=== PATIENT | female | born 1955 | race Caucasian/White ===

== ENCOUNTER → 2019-08-15 | Outpatient (CLI) | payer OTHER ==
[~2019-08-15] MED LIST: COZAAR 25 MG TA25 M2 PO; HYDROCODON-ACE1 EAC7 PO; PRAVASTATIN SOD40 MG PO; VIBRAMYCIN 100100 MG PO
== END ==
LOC: SJCVCIMAG 10:21
DX: I70.202 Unspecified atherosclerosis of native arteries of extremities, left leg (principal)

== ENCOUNTER → 2019-08-19 | Outpatient (CLI) | payer OTHER | LOC: SJCVC 15:46 | DX: I73.9 Peripheral vascular disease, unspecified (principal); I10 Essential (primary) hypertension; E78.00 Pure hypercholesterolemia, unspecified; Z72.0 Tobacco use; Z79.899 Other long term (current) drug therapy ==

== ENCOUNTER 2019-08-21 10:52 | Observation (INO) | payer OTHER ==
[~2019-08-21] VITALS: Ht 154.9 cm; Wt 55.9 kg
[2019-08-21 12:16] VITALS: BP 126/78
[2019-08-21] MEDS ORDERED: VIBRAMYCIN 100100 MG PO ×2 (12:25→12:26)
[2019-08-21] MEDS ORDERED: HYDROCODON-ACE1 EAC7 PO (12:26)
[2019-08-21] MEDS ORDERED: COZAAR 25 MG TA25 M2 PO (12:27)
[2019-08-21] MEDS ORDERED: PRAVASTATIN SOD40 MG PO (12:27)
[2019-08-21 12:33] LABS: HEMATOCRIT 40.8 % (37.0-47.0); HEMOGLOBIN 13.6 gm/dL (12.0-15.0); MCH 32.2 pg (26.0-34.0); MCHC 33.4 g/dL (28.0-37.0); MCV 96.4 fL (80.0-100.0); RBC 4.23 mil/uL (4.20-5.00); RDW 13.2 % (10.5-14.5); WBC 6.6 thou/uL (4.0-11.0)
[2019-08-21 12:47] LABS: CALCIUM 9.7 mg/dL (8.5-10.1); CREATININE 0.8 mg/dL (0.6-1.0); POTASSIUM 3.8 mmol/L (3.5-5.1)
[2019-08-21 17:00] VITALS: BP 104/59
--- NOTE | 2019-08-21 17:22 | NUR ---
TO UNIT BY CART AT 1715, REPORT FROM FRANCISCO, RN, AND SHAYE RN. RIGHT GROIN SITE CDI BUT SWOLLEN FROM PREVIOUS PER FRANCISCO. HE HELD PRESSURE FOR FIVE MINUTES AND SITE NORMALIZED. WILL CONTINUE TO MONITOR HER GROIN SITE CLOSELY. REPORTEDLY MAY DISCHARGE TO HOME AT 2030 PENDING FURTHER FAVORABLE ASSESSMENT. VSS. SR PER TELE WITH [address] AV BLOCK. BEDREST UNTIL 1999.
[2019-08-21 20:20] VITALS: BP 128/52
== END 2019-08-21 20:30 | disposition home or self-care (01) ==
LOC: CATH 10:52 → 2N 17:05
PROVIDERS: ADMIT Nuclear Medicine Nuclear Cardiology
DX: I70.212 Atherosclerosis of native arteries of extremities with intermittent claudication, left leg (principal); I10 Essential (primary) hypertension

== ENCOUNTER → 2020-03-24 | Outpatient (CLI) | payer OTHER ==
[~2020-03-24] MED LIST changes: +ASA81BEC PO; +DORYX MPC120 MG PO; +PLAVIX 75 MG TA75 MG PO; +SUPER THERAVIT1 EACH PO
== END ==
LOC: SJCVCIMAG 09:41
PROVIDERS: ATTEND Nuclear Medicine Nuclear Cardiology
DX: I65.23 Occlusion and stenosis of bilateral carotid arteries (principal); I70.203 Unspecified atherosclerosis of native arteries of extremities, bilateral legs; I77.9 Disorder of arteries and arterioles, unspecified; I10 Essential (primary) hypertension; E78.00 Pure hypercholesterolemia, unspecified; Z95.828 Presence of other vascular implants and grafts; Z72.0 Tobacco use; Z79.899 Other long term (current) drug therapy

== ENCOUNTER → 2020-03-25 | Outpatient (CLI) | payer OTHER ==
[~2020-03-25] VITALS: Ht 154.9 cm; Wt 61.2 kg
[2020-03-25 09:05] VITALS: BP 161/73
[2020-03-25 09:13] LABS: HEMATOCRIT 36.5 % (37.0-47.0); HEMOGLOBIN 11.9 gm/dL (12.0-15.0); MCH 31.5 pg (26.0-34.0); MCHC 32.7 g/dL (28.0-37.0); MCV 96.4 fL (80.0-100.0); RBC 3.78 mil/uL (4.20-5.00); RDW 13.8 % (10.5-14.5); WBC 6.8 thou/uL (4.0-11.0)
[2020-03-25 09:31] LABS: CALCIUM 8.9 mg/dL (8.5-10.1)
[2020-03-25 09:34] LABS: POTASSIUM 4.7 mmol/L (3.5-5.1)
== END | disposition home or self-care (01) ==
LOC: CATH 08:19
PROVIDERS: ATTEND Nuclear Medicine Nuclear Cardiology
DX: I70.211 Atherosclerosis of native arteries of extremities with intermittent claudication, right leg (principal); I70.1 Atherosclerosis of renal artery; I10 Essential (primary) hypertension; E78.00 Pure hypercholesterolemia, unspecified; E78.5 Hyperlipidemia, unspecified; Z98.890 Other specified postprocedural states; Z79.899 Other long term (current) drug therapy; Z90.710 Acquired absence of both cervix and uterus; Z90.49 Acquired absence of other specified parts of digestive tract; Z88.6 Allergy status to analgesic agent